=== PATIENT | male | born 1965 | race Caucasian/White ===

== ENCOUNTER → 2021-02-03 | Outpatient (CLI) | payer BC ==
[~2021-02-03] MED LIST: PHEN-640 PO; SULF1TAB35 PO; TRIA1TAB3 PO; TRM50T PO
--- NOTE | 2021-02-03 16:58 | Diagnostic Imaging Report ---
INDICATION: Left ureteral calculus. EXAMINATION: KUB at 2:44 PM. FINDINGS: The bowel gas pattern is normal. There are no pathologic masses. There is a 7 x 2 mm calcification in the left pelvis that could be a distal ureteral calculus. IMPRESSION: A 7 x 2 mm elongated radiopacity in the left mid pelvis could be a distal ureteral calculus. Dictated by: Dictated on workstation # [id number]
== END ==
LOC: RAD 14:12
PROVIDERS: ATTEND Urology
DX: N20.1 Calculus of ureter (principal)
CPT/HCPCS: 74018

== ENCOUNTER 2021-02-04 10:10 | Outpatient (CLI) | payer BC ==
[~2021-02-04] VITALS: Ht 180.3 cm; Wt 100.6 kg
[2021-02-04 10:37] VITALS: BP 124/80
[2021-02-04] MEDS ORDERED: TRIA1TAB3 PO (11:04)
[2021-02-05] MEDS ORDERED: PHEN-640 PO (10:07)
[2021-02-05] MEDS ORDERED: SULF1TAB35 PO (10:07)
[2021-02-05] MEDS ORDERED: TRM50T PO (10:07)
== END 2021-02-04 11:07 | disposition home or self-care (01) ==
LOC: PREOP 10:10
PROVIDERS: ATTEND Urology
DX: Z01.818 Encounter for other preprocedural examination (principal)
CPT/HCPCS: 87081

== ENCOUNTER 2021-02-05 06:40 | Day surgery (SDC) | payer BC ==
[2021-02-05] VITALS (10 sets, daily range): BP systolic 114–134; BP diastolic 70–87
[~2021-02-05] VITALS: Ht 180.3 cm; Wt 100.6 kg
[~2021-02-05 06:40] MED LIST changes: -PHEN-640 PO; -SULF1TAB35 PO; -TRM50T PO
[2021-02-05] MEDS ORDERED: cefTRIAXone 1,000 MG IV (ROCEPHIN) VIAL ONE (06:57)
[2021-02-05] MEDS ORDERED: LACTATED RINGERS 1,000 ML IV PRN (07:00)
[2021-02-05] MEDS ORDERED: cefTRIAXone FOR IV USE 1,000 MG in WATER (STERILE) FOR INJECTION 10 ML IV ONE (07:00)
--- NOTE | 2021-02-05 07:08 | Progress Note-Pre Operative ---
Pre-Operative Progress Note H&P Reviewed The H&P was reviewed, patient examined and no changes noted. Date Seen by Provider: February 05, 2021 Time Seen by Provider: 07:08 Date H&P Reviewed: February 05, 2021 Time H&P Reviewed: 07:08 Pre-Operative Diagnosis: LT DISTAL URETERAL STONE SHANDRA GAVIN MD February 05, 2021 07:08
--- NOTE | 2021-02-05 07:11 | Progress Note-Post Operative ---
Post-Operative Progess Note Surgeon (s)/Emt P (s) Surgeon SHANDRA GAVIN MD Emt P: NONE Pre-Operative Diagnosis LT DISTAL URETERAL STONE Post-Operative Diagnosis SAME AND SUBMEATAL AND URETHRAL STRICTURES Procedure & Operative Findings Date of Procedure 02/05/21 Procedure Performed/Findings U.D, ATTEMPTED CYSTOCOPY AND ATTEMPTED LT URETEROSCOPY Anesthesia Type GENERAL Estimated Blood Loss Estimated blood loss (mL): NEGLIGIBLE Specimens/Packing Specimens Removed NONE Packing: NONE SHANDRA GAVIN MD February 05, 2021 07:11
--- NOTE | 2021-02-05 07:13 | Diagnostic Imaging Report ---
INDICATION: Left kidney stone. TECHNIQUE: 2 supine view of the abdomen 6:58 AM CORRELATION STUDY: 02/03/2021 FINDINGS: Bowel gas pattern is unremarkable. A previously noted approximately 7 x 2 mm calcification projecting over the left hemipelvis over the inferior aspect of the sacrum appears unchanged. IMPRESSION: 1. Stable appearance of a calcification left hemipelvis. Distal ureteral calculus not excluded. If further assessment desired, renal colic CT imaging recommended. Dictated by: Dictated on workstation # [id number]
[2021-02-05] MEDS ORDERED: LIDOCAINE PF 2% 5 ML (XYLOCAINE) VIAL ONE (08:30)
[2021-02-05] MEDS ORDERED: fentaNYL INJ 100 MCG/2 ML AMP ONE (08:30)
[2021-02-05] MEDS ORDERED: SEVOFLURANE (ULTANE) 15 ML INHAL SOLN ONE (08:30)
[2021-02-05] MEDS ORDERED: ROCURONIUM 10 MG/ML 5 ML SYRINGE IV ONE (08:30)
[2021-02-05] MEDS ORDERED: ONDANSETRON 4 MG/2 ML (SDV) Z0FRAN ONE (08:30)
[2021-02-05] MEDS ORDERED: MIDAZOLAM 2 MG/2 ML (VERSED) VIAL ONE (08:30)
[2021-02-05] MEDS ORDERED: proPOfol 200 MG/20 ML (DIPRIVAN) VIAL IV ONE (08:30)
[2021-02-05] MEDS ORDERED: GLYCOPYRROLATE 0.2 MG/ML (ROBINUL) 2 ML VIAL ONE (09:04)
[2021-02-05] MEDS ORDERED: NEOSTIGMINE 3 MG/3 ML VIAL ONE (09:04)
[2021-02-05] MEDS ORDERED: RT-ALBUTEROL SULF 2.5 MG/3 ML PRE-MIX VIAL ONE (09:19)
--- NOTE | 2021-02-05 09:24 | Discharge Inst-Urology ---
Discharge Inst-Urology Reconcile Patient Problems Problems Reviewed?: Yes Final Diagnosis LT DISTAL URETERAL STONE AND URETHRAL STRICTURES Patient Instructions/Follow Up Plan/Assessment/Instructions Discharge with jaquez and leg bag day time and large bag night time with instructions Come to office tomorrow 9am to change jaquez Please make appointment to been seen by me Saturday 02/10. Increase oral fluids for 48 hours and then as needed. Diet and Activity as tolerated. If questions or concerns contact your physician Or seek help at emergency department. SHANDRA GAVIN MD February 05, 2021 09:24
[2021-02-05] MEDS ORDERED: HYDROmorphone 2 MG/ML VIAL (DILAUDID) IV ONE (09:30)
[2021-02-05] MEDS ORDERED: RT-ALBUTEROL SULF 2.5 MG/3 ML PRE-MIX VIAL INH ONE (09:30)
[2021-02-05] MEDS ORDERED: ONDANSETRON 4 MG/2 ML (SDV) Z0FRAN IVP PRN (09:30)
[2021-02-05] MEDS ORDERED: TRM50T PO (10:07)
[2021-02-05] MEDS ORDERED: SULF1TAB35 PO (10:07)
[2021-02-05] MEDS ORDERED: PHEN-640 PO (10:07)
--- NOTE | 2021-02-05 15:10 | OPERATIVE REPORT ---
DATE OF SERVICE: 02/05/2021 PREOPERATIVE DIAGNOSIS: Left distal ureteral stone. POSTOPERATIVE DIAGNOSIS: Left distal ureteral stone and urethral strictures. OPERATION PERFORMED: Urethral dilatation, attempted cystoscopy, attempted left ureteroscopy and insertion of Howard catheter. SURGEON: Shandra Gavin MD ANESTHESIA: General. COMPLICATIONS: None. DESCRIPTION OF PROCEDURE: Under satisfactory general anesthesia, the patient in lithotomy position, genitalia were prepped and draped in the usual sterile fashion. A 23-Finnish cystoscope was unable to go through the meatus because it was submeatal stricture. I dilated with Tereso sound to accommodate the scope. The urethra was normal; however, there was a stricture just distal to the sphincter not admitting the scope. So, I removed the cystoscope, passed a 6.9 Finnish semirigid ureteroscope into the bladder. I attempted to pass it through the left ureteral orifice that was and has not been dilated, of course, so I discontinued further attempt, removed ureteroscope. I was able to insert a 16-Finnish coude catheter, drained the bladder, connected to gravity. I was not able to pass an 18 prior to it. So, we will leave the catheter in and proceed with soft dilatation at the office and then on Wednesday, I will see him and set him up for the ESWL with possible endoscopies on Wednesday according to the site of the stone. The plan was fully explained to the and then later on to the patient. Job ID: [id number] DocumentID: [id number] Dictated Date: 02/05/2021 09:28:41 Fender Mechanic Apprentice Date: 02/05/2021 15:09:15 Dictated By: SHANDRA GAVIN MD
== END 2021-02-05 11:40 | disposition home or self-care (01) ==
LOC: SDC 06:40
PROVIDERS: ATTEND Urology
DX: N35.911 Unspecified urethral stricture, male, meatal (principal); N20.1 Calculus of ureter; H81.09 Meniere's disease, unspecified ear
CPT/HCPCS: 74018

== ENCOUNTER 2021-02-07 05:40 | Outpatient (CLI) | payer BC ==
[~2021-02-07] VITALS: Ht 180.3 cm; Wt 99.9 kg
[~2021-02-07 05:40] MED LIST changes: +PHEN-640 PO; +SULF1TAB35 PO; +TRM50T PO
[2021-02-11] MEDS ORDERED: NITR-65 PO (11:37)
[2021-02-11] MEDS ORDERED: TMSL.4C PO (11:37)
[2021-02-11] MEDS ORDERED: TRM50T PO (11:38)
== END 2021-02-10 15:50 | disposition home or self-care (01) ==
LOC: PREOP 05:40
PROVIDERS: ATTEND Urology
DX: Z01.818 Encounter for other preprocedural examination (principal)

== ENCOUNTER 2021-02-11 06:49 | Day surgery (SDC) | payer BC ==
--- NOTE | 2021-02-05 13:31 | Anesthesia-General Post-Op ---
General Patient Condition Mental Status/LOC: Same as Preop Cardiovascular: Satisfactory Nausea/Vomiting: Absent Respiratory: Satisfactory Pain: Controlled Complications: Absent Post Op Complications Complications None Follow Up Care/Instructions Patient Instructions None needed. Anesthesia/Patient Condition Patient Condition Patient is doing well, no complaints, stable vital signs, no apparent adverse anesthesia problems. No complications reported per nursing. D/C home per [facility] [place] Criteria: Yes CHAR DOLAN CRNA February 05, 2021 13:30
[2021-02-11] VITALS (12 sets, daily range): BP systolic 114–141; BP diastolic 82–96
[~2021-02-11] VITALS: Ht 180.3 cm; Wt 99.9 kg
[2021-02-11] MEDS ORDERED: cefTRIAXone FOR IV USE 1,000 MG in WATER (STERILE) FOR INJECTION 10 ML IV ONE (07:00)
[2021-02-11] MEDS ORDERED: LACTATED RINGERS 1,000 ML IV PRN (07:00)
--- NOTE | 2021-02-11 07:12 | Progress Note-Pre Operative ---
Pre-Operative Progress Note H&P Reviewed The H&P was reviewed, patient examined and no changes noted. Date Seen by Provider: February 11, 2021 Time Seen by Provider: 07:12 Date H&P Reviewed: February 11, 2021 Time H&P Reviewed: 07:12 Pre-Operative Diagnosis: LT DISTAL URETERAL STONE SHANDRA GAVIN MD February 11, 2021 07:12
[2021-02-11] MEDS ORDERED: proPOfol 200 MG/20 ML (DIPRIVAN) VIAL IV ONE (07:35)
[2021-02-11] MEDS ORDERED: ONDANSETRON 4 MG/2 ML (SDV) Z0FRAN ONE (07:35)
[2021-02-11] MEDS ORDERED: MIDAZOLAM 2 MG/2 ML (VERSED) VIAL ONE (07:35)
[2021-02-11] MEDS ORDERED: LIDOCAINE PF 2% 5 ML (XYLOCAINE) VIAL ONE (07:35)
[2021-02-11] MEDS ORDERED: fentaNYL INJ 100 MCG/2 ML AMP ONE (07:35)
[2021-02-11] MEDS ORDERED: SEVOFLURANE (ULTANE) 15 ML INHAL SOLN ONE ×4 (07:36→10:00)
--- NOTE | 2021-02-11 08:01 | Diagnostic Imaging Report ---
INDICATION: Nephrolithiasis. TECHNIQUE: Single supine view of the abdomen 7:05 AM CORRELATION STUDY: 02/05/2021 FINDINGS: Previously noted 9 mm length calcification over the left inferior sacrum/coccyx is again demonstrated appears unchanged. No definitive calcification over the renal silhouettes and expected course of the remaining ureters. Bowel gas pattern unremarkable. IMPRESSION: 1. No appreciable change in a calcification left hemipelvis. This could reflect calcification in the distal left ureter. Dictated by: Dictated on workstation # [id number]
[2021-02-11] MEDS ORDERED: KETOROLAC 30 MG/ML VIAL ONE (09:14)
[2021-02-11] MEDS ORDERED: FUROSEMIDE 40 MG/4 ML INJ (LASIX) ONE (09:14)
--- NOTE | 2021-02-11 09:42 | Discharge Inst-Urology ---
Discharge Inst-Urology Reconcile Patient Problems Problems Reviewed?: Yes Final Diagnosis LT DISTAL URETERAL STONE Patient Instructions/Follow Up Plan/Assessment/Instructions Please make appointment to been seen in office in 2 weeks. KUB prior to it KUB on way home Post ESWL instructions Increase oral fluids for 48 hours and then as needed. Diet and Activity as tolerated. If questions or concerns contact your physician Or seek help at emergency department. SHANDRA GAVIN MD February 11, 2021 09:42
--- NOTE | 2021-02-11 09:43 | Progress Note-Post Operative ---
Post-Operative Progess Note Surgeon (s)/Mirror Maker (s) Surgeon SHANDRA GAVIN MD Mirror Maker: NONE Pre-Operative Diagnosis LT DISTAL URETERAL STONE Post-Operative Diagnosis SAME Procedure & Operative Findings Date of Procedure 02/11/21 Procedure Performed/Findings LT ESWL Anesthesia Type GENERAL Estimated Blood Loss Estimated blood loss (mL): NONE Specimens/Packing Specimens Removed NONE Packing: NONE SHANDRA GAVIN MD February 11, 2021 09:43
[2021-02-11] MEDS ORDERED: MEPERIDINE (DEMEROL) INJ 50 MG/ML IVP ONE (10:30)
[2021-02-11] MEDS ORDERED: morphine INJ 10 MG/ML 1ML (SYR OR VIAL) IVP ONE (10:30)
[2021-02-11] MEDS ORDERED: PROMETHAZINE INJ 25 MG/ML (PHENERGAN) AMP IVP ONE (10:30)
[2021-02-11] MEDS: ONDANSETRON 4 MG/2 ML (SDV) Z0FRAN IVP PRN ×2 (10:38→11:16)
--- NOTE | 2021-02-11 11:30 | Anesthesia-General Post-Op ---
General Patient Condition Mental Status/LOC: Same as Preop Cardiovascular: Satisfactory Nausea/Vomiting: Absent Respiratory: Satisfactory Pain: Controlled Complications: Absent Post Op Complications Complications None Follow Up Care/Instructions Patient Instructions None needed. Anesthesia/Patient Condition Patient Condition Patient is doing well, no complaints, stable vital signs, no apparent adverse anesthesia problems. No complications reported per nursing. [place] [facility] [place]: Yes FARAZ MUÑIZ CRNA February 11, 2021 11:30
[2021-02-11] MEDS ORDERED: NITR-65 PO (11:37)
[2021-02-11] MEDS ORDERED: TMSL.4C PO (11:37)
[2021-02-11] MEDS ORDERED: TRM50T PO (11:38)
--- NOTE | 2021-02-11 11:52 | Diagnostic Imaging Report ---
INDICATION: Nephrolithiasis. EXAMINATION: KUB at 11:39 a.m. FINDINGS: Bowel gas pattern is normal. There are no pathologic masses or calcifications. IMPRESSION: Negative KUB. Dictated by: Dictated on workstation # [id number]
--- NOTE | 2021-02-11 14:26 | OPERATIVE REPORT ---
DATE OF SERVICE: 02/11/2021 PREOPERATIVE DIAGNOSIS: Left distal ureteral stone. POSTOPERATIVE DIAGNOSIS: Left distal ureteral stone. OPERATION PERFORMED: Left ESWL. SURGEON: Vazquez Gavin MD ANESTHESIA: General. COMPLICATIONS: None. DESCRIPTION OF PROCEDURE: Under satisfactory general anesthesia, the patient in supine position on the ESWL table, the left distal ureteral stone was localized. Shocks were delivered at kV of rising it from 6 to 11. A total of 3500 shocks completely fragmented the stone. The patient received 40 mg of Lasix and 30 mg of Toradol IV at the end of the procedure. He tolerated the procedure and anesthesia well and was sent to recovery room in stable condition. Job ID: [id number] DocumentID: [id number] Dictated Date: 02/11/2021 10:08:44 Cordwainer Date: 02/11/2021 14:25:09 Dictated By: VAZQUEZ GAVIN MD
== END 2021-02-11 12:20 | disposition home or self-care (01) ==
LOC: SDC 06:49
PROVIDERS: ATTEND Urology
DX: N20.1 Calculus of ureter (principal)
CPT/HCPCS: 74018; 87081

== ENCOUNTER → 2021-02-25 | Outpatient (CLI) | payer BC ==
[~2021-02-25] MED LIST changes: +NITR-65 PO; +TMSL.4C PO
--- NOTE | 2021-02-25 17:09 | Diagnostic Imaging Report ---
INDICATION: Left lower ureteral stone. Comparison made with prior examination 02/11/2021. FINDINGS: The bowel gas pattern is nonspecific. No definitive stones are appreciated. The osseous structures are unremarkable. IMPRESSION: Nonspecific bowel gas pattern. Dictated by: Dictated on workstation # [id number]
== END ==
LOC: RAD 13:19
PROVIDERS: ATTEND Urology
DX: N20.1 Calculus of ureter (principal)
CPT/HCPCS: 74018